=== PATIENT | female | born 1970 | race Hispanic/Latino ===

== ENCOUNTER 2017-08-27 20:22 | Emergency (ER) | payer MEDICAID, OTHER ==
[2017-08-27] MEDS ORDERED: ASPIRIN 325 MG TABLET ONE (20:26)
[2017-08-27 20:34] LABS: BASOPHILS % (AUTO) 1.3 % (0.0-5.0); EOSINOPHILS % (AUTO) 0.9 % (0.0-8.0); HEMATOCRIT 43.2 % (36-48); MEAN CORPUSCULAR HEMOGLOBIN 28.8 pg (27.0-33.0); MEAN CORPUSCULAR HGB CONC 34.1 g/dL (32.0-36.0); MEAN CORPUSCULAR VOLUME 84.4 fL (79-99); MONOCYTES % (AUTO) 6.4 % (3.0-13.0); NEUTROPHILS % (AUTO) 62.4 % (40.0-77.0); PLATELET COUNT (AUTO) 310 K/uL (130-400); RED BLOOD CELL COUNT(AUTO) 5.12 MIL/uL (4.00-5.50); WHITE BLOOD COUNT (AUTO) 12.9 K/uL (4.8-10.8)
[2017-08-27 20:48] LABS: CREATININE 0.8 mg/dL (0.5-1.5); INR 0.91 (0.85-1.15); PARTIAL THROMBOPLASTIN TIME 25.2 SEC (26.3-35.5); PROTHROMBIN TIME 9.6 SEC (9.6-11.6)
[2017-08-27] MEDS ORDERED: DIAZEPAM 5 MG TABLET ONE (20:48)
[2017-08-27 21:00] LABS: B-TYPE NATRIURETIC PEPTIDE < 5 pg/mL (0-100)
[2017-08-27 21:02] LABS: ALBUMIN 3.2 g/dL (3.5-5.0); BILIRUBIN,TOTAL 0.3 mg/dL (0.2-1.0); CREATINE KINASE MB 0.5 ng/mL (0.5-3.6); TOTAL PROTEIN, SERUM 6.3 g/dL (6.0-8.3)
== END 2017-08-27 21:44 | disposition home or self-care (01) ==
LOC: EDH 20:22
DX: F41.9 Anxiety disorder, unspecified (principal); E11.9 Type 2 diabetes mellitus without complications; E78.5 Hyperlipidemia, unspecified; I10 Essential (primary) hypertension
CPT/HCPCS: 36415; 71045; 80053; 82550; 82553; 83874; 83880; 84484; 85025; 85610; 85730; 93005; 94761

== ENCOUNTER 2018-05-18 20:05 | Observation (INO) | payer OTHER ==
[~2018-05-18] VITALS: Ht 162.6 cm; Wt 102.1 kg
[2018-05-18] MEDS ORDERED: ASPIRIN 325 MG TABLET ONE (20:24)
[2018-05-18 20:36] LABS: APPEARANCE,URINE Clear (CLEAR); BILIRUBIN,URINE Negative (NEGATIVE); COLOR,URINE Yellow (YELLOW); GLUCOSE, URINE (UA) Negative (NEGATIVE); KETONES,URINE Negative (NEGATIVE); LEUKOCYTE ESTERASE ,URINE Negative (NEGATIVE); NITRATE,URINE Negative (NEGATIVE); OCCULT BLOOD,URINE Negative (NEGATIVE); PROTEIN,URINE Negative (NEGATIVE)
[2018-05-18 20:44] LABS: AMPHET/METH SCREEN,URINE NEGATIVE (NEGATIVE); BARBITURATE SCREEN, URINE NEGATIVE (NEGATIVE); BENZODIAZEPINES SCREEN,URINE NEGATIVE (NEGATIVE); CANNABINOID SCREEN,URINE POSITIVE (NEGATIVE); COCAINE SCREEN,URINE NEGATIVE (NEGATIVE); OPIATE SCREEN,URINE NEGATIVE (NEGATIVE); PHENCYCLIDINE SCREEN,URINE NEGATIVE (NEGATIVE)
[2018-05-18 21:01] LABS: BASOPHILS % (AUTO) 1.1 % (0.0-5.0); EOSINOPHILS % (AUTO) 2.2 % (0.0-8.0); HEMATOCRIT 38.2 % (36-48); LYMPHOCYTES % (AUTO) 29.7 % (21.0-51.0); MEAN CORPUSCULAR HEMOGLOBIN 28.2 pg (27.0-33.0); MEAN CORPUSCULAR HGB CONC 33.6 g/dL (32.0-36.0); MEAN CORPUSCULAR VOLUME 83.9 fL (79-99); MONOCYTES % (AUTO) 9.6 % (3.0-13.0); NEUTROPHILS % (AUTO) 57.4 % (40.0-77.0); PLATELET COUNT (AUTO) 427 K/uL (130-400); RED BLOOD CELL COUNT(AUTO) 4.56 MIL/uL (4.00-5.50); RED CELL DISTRIBUTION WIDTH 13.4 % (11.0-15.5); WHITE BLOOD COUNT (AUTO) 9.3 K/uL (4.8-10.8)
[2018-05-18 21:08] LABS: CREATININE 0.8 mg/dL (0.5-1.5)
[2018-05-18 21:11] LABS: INR 0.95 (0.85-1.15); PARTIAL THROMBOPLASTIN TIME 27.3 SEC (26.3-35.5)
[2018-05-18 21:18] LABS: ALBUMIN 3.5 g/dL (3.5-5.0); BILIRUBIN,TOTAL 0.3 mg/dL (0.2-1.0); TOTAL PROTEIN, SERUM 7.1 g/dL (6.0-8.3)
[2018-05-18 21:39] LABS: B-TYPE NATRIURETIC PEPTIDE 9 pg/mL (0-100)
[2018-05-18] MEDS ORDERED: MORPHINE SULFATE 2 MG/ML 1ML SYG IV PRN (22:15)
[2018-05-18] MEDS ORDERED: ACETAMINOPHEN 325 MG TAB PO PRN (22:15)
[2018-05-18] MEDS ORDERED: ONDANSETRON HCL 4 MG/2 ML VIAL IV PRN (22:15)
[2018-05-19] VITALS (7 sets, daily range): BP systolic 106–146; BP diastolic 55–94
[2018-05-19] MEDS ORDERED: METF-446 PO (02:07)
[2018-05-19] MEDS ORDERED: AEC81 PO (02:07)
[2018-05-19] MEDS ORDERED: INSU3INS5 SQ ×2 (02:07)
[2018-05-19] MEDS ORDERED: LISI2.5T2 PO (02:07)
[2018-05-19] MEDS ORDERED: GABA-531 PO (02:07)
[2018-05-19 05:42] LABS: CREATINE KINASE, TOTAL 40 U/L (21-232); MYOGLOBIN 29 ng/mL (10-92); TROPONIN I < 0.04 ng/mL (0.00-0.06)
[2018-05-19] MEDS: INSULIN HUMULIN R 100 UNIT/ML 3ML SQ SCH ×4 (05:52→21:40)
[2018-05-19] MEDS: METOPROLOL TARTRATE 25 MG TAB PO SCH ×2 (08:26→21:39)
[2018-05-19] MEDS: ATORVASTATIN CALCIUM 20 MG TABLET PO SCH (08:26)
[2018-05-19] MEDS: PANTOPRAZOLE SODIUM 40 MG TABLET.DR PO SCH (08:26)
[2018-05-19] MEDS: ASPIRIN 325 MG TABLET PO SCH (08:26)
[2018-05-19] MEDS: LISINOPRIL 2.5 MG TABLET PO SCH (08:27)
[2018-05-19] MEDS: ENOXAPARIN SODIUM 40 MG/0.4 ML SYRINGE SQ SCH (08:27)
[2018-05-19 08:45] LABS: CREATINE KINASE, TOTAL 38 U/L (21-232); MYOGLOBIN 28 ng/mL (10-92); TROPONIN I < 0.04 ng/mL (0.00-0.06)
[2018-05-19 14:55] LABS: CREATINE KINASE, TOTAL 39 U/L (21-232); MYOGLOBIN 16 ng/mL (10-92); TROPONIN I < 0.04 ng/mL (0.00-0.06)
--- NOTE | 2018-05-19 16:14 | NUR ---
cm note met with patient and family. pt resides at home with 2 children, is independent and active at home. no dme. goes to [facility] familiar with dr isbell.. pt drives. dc plan is back to home at de. Addendum: 05/19/18 at 1616 by NOEMI BHARDWAJ CM Amended: Links added.
[2018-05-20 04:00] VITALS: BP 102/64
[2018-05-20 05:53] LABS: BASOPHILS % (AUTO) 1.3 % (0.0-5.0); EOSINOPHILS % (AUTO) 2.3 % (0.0-8.0); HEMATOCRIT 37.6 % (36-48); LYMPHOCYTES % (AUTO) 29.7 % (21.0-51.0); MEAN CORPUSCULAR HEMOGLOBIN 28.9 pg (27.0-33.0); MEAN CORPUSCULAR HGB CONC 34.2 g/dL (32.0-36.0); MEAN CORPUSCULAR VOLUME 84.3 fL (79-99); NEUTROPHILS % (AUTO) 57.7 % (40.0-77.0); PLATELET COUNT (AUTO) 386 K/uL (130-400); RED BLOOD CELL COUNT(AUTO) 4.46 MIL/uL (4.00-5.50); RED CELL DISTRIBUTION WIDTH 13.3 % (11.0-15.5); WHITE BLOOD COUNT (AUTO) 8.2 K/uL (4.8-10.8)
[2018-05-20] MEDS: INSULIN HUMULIN R 100 UNIT/ML 3ML SQ SCH ×3 (06:13→17:00)
[2018-05-20 06:15] LABS: ALBUMIN 3.1 g/dL (3.5-5.0); BILIRUBIN,TOTAL 0.4 mg/dL (0.2-1.0); CREATININE 0.8 mg/dL (0.5-1.5); POTASSIUM 4.3 mmol/L (3.5-5.1); TOTAL PROTEIN, SERUM 6.5 g/dL (6.0-8.3)
[2018-05-20 08:35] VITALS: BP 123/69
[2018-05-20] MEDS: METOPROLOL TARTRATE 25 MG TAB PO SCH (09:03)
[2018-05-20] MEDS: ENOXAPARIN SODIUM 40 MG/0.4 ML SYRINGE SQ SCH (09:05)
[2018-05-20] MEDS: LISINOPRIL 2.5 MG TABLET PO SCH (09:05)
[2018-05-20] MEDS: ATORVASTATIN CALCIUM 20 MG TABLET PO SCH (09:05)
[2018-05-20] MEDS: PANTOPRAZOLE SODIUM 40 MG TABLET.DR PO SCH (09:05)
[2018-05-20] MEDS: ASPIRIN 325 MG TABLET PO SCH (09:05)
[2018-05-20 11:57] VITALS: BP 131/76
--- NOTE | 2018-05-20 13:15 | NUR ---
MICHELET F/U WAITING ON 2 D ECHO WITH PROB DC HOME AFTER READ. Addendum: 05/20/18 at 1316 by MONSERRAT CONDON RN CM Amended: Links added.
[2018-05-20 16:20] VITALS: BP 175/78
--- NOTE | 2018-05-20 18:20 | NUR ---
Patient discharged in stable condition. 2 D echo WNL. Galileo Marcelo ALUMINUM [employer]ING[employer]FER notified of findings. Ok to discharge. Patient instructed to f/u with Dr. Castro in 1 week. Patient instructed to come back to ER if SOB, chest pain or changes in mental status. patient verbalized understanding. No new prescriptions given. IV removed from right hand. pt tolerated well.
== END 2018-05-20 18:45 | disposition home or self-care (01) ==
LOC: EDH 20:05 → INTOOBSV 22:06 → EDHIP 22:06 → 4CH 05-19 00:35
PROVIDERS: ADMIT Hospitalist; ATTEND Hospitalist
DX: R07.89 Other chest pain (principal); R06.02 Shortness of breath; E11.9 Type 2 diabetes mellitus without complications; E78.5 Hyperlipidemia, unspecified; I10 Essential (primary) hypertension; F12.90 Cannabis use, unspecified, uncomplicated
CPT/HCPCS: 36415 ×3; 71045; 80053 ×2; 80305; 81003; 81025; 82550 ×4; 82948 ×7; 83690; 83874 ×4; 83880; 84484 ×4; 84702; 85025 ×2; 85610; 85730; 93005; 93306; 96372 ×2; 96374; 96375; 99284; G0378 ×45; J1650 ×2; J1815 ×3; J2405

== ENCOUNTER 2018-05-30 20:33 | Emergency (ER) | payer OTHER ==
[~2018-05-30 20:33] MED LIST: AEC81 PO; GABA-531 PO; INSU3INS5 SQ; LISI2.5T2 PO; METF-446 PO
[2018-05-30 21:20] LABS: BASOPHILS % (AUTO) 1.2 % (0.0-5.0); EOSINOPHILS % (AUTO) 3.8 % (0.0-8.0); HEMATOCRIT 37.9 % (36-48); LYMPHOCYTES % (AUTO) 25.9 % (21.0-51.0); MEAN CORPUSCULAR HEMOGLOBIN 28.7 pg (27.0-33.0); MEAN CORPUSCULAR HGB CONC 34.3 g/dL (32.0-36.0); MEAN CORPUSCULAR VOLUME 83.8 fL (79-99); MONOCYTES % (AUTO) 9.9 % (3.0-13.0); NEUTROPHILS % (AUTO) 59.2 % (40.0-77.0); NUCLEATED RED BLOOD CELLS 0.1 % (0.0-0.19); PLATELET COUNT (AUTO) 342 K/uL (130-400); RED BLOOD CELL COUNT(AUTO) 4.52 MIL/uL (4.00-5.50); RED CELL DISTRIBUTION WIDTH 13.3 % (11.0-15.5); WHITE BLOOD COUNT (AUTO) 9.6 K/uL (4.8-10.8)
[2018-05-30 21:30] LABS: POTASSIUM 4.1 mmol/L (3.5-5.1)
[2018-05-30 21:33] LABS: INR 0.91 (0.85-1.15); PARTIAL THROMBOPLASTIN TIME 27.5 SEC (26.3-35.5); PROTHROMBIN TIME 9.6 SEC (9.6-11.6)
[2018-05-30 21:42] LABS: ALBUMIN 3.3 g/dL (3.5-5.0); BILIRUBIN,TOTAL 0.2 mg/dL (0.2-1.0); CREATININE 0.9 mg/dL (0.5-1.5); TOTAL PROTEIN, SERUM 7.1 g/dL (6.0-8.3)
[2018-05-30] MEDS ORDERED: ASPIRIN 325 MG TABLET ONE (22:01)
[2018-05-30] MEDS ORDERED: ONDANSETRON HCL 4 MG/2 ML VIAL ONE (22:01)
[2018-05-30] MEDS ORDERED: MORPHINE SULFATE 4 MG/1ML SYG ONE (22:01)
[2018-05-30] MEDS ORDERED: MEPERIDINE-PF 25 MG/ML SYG ONE (22:22)
[2018-05-31] MEDS ORDERED: KETOROLAC TROMETHAMINE 30MG/ML ONE (00:58)
== END 2018-05-31 01:31 | disposition home or self-care (01) ==
LOC: EDH 20:33
DX: R07.89 Other chest pain (principal); F41.9 Anxiety disorder, unspecified; I10 Essential (primary) hypertension; E78.5 Hyperlipidemia, unspecified; E11.9 Type 2 diabetes mellitus without complications; Z91.041 Radiographic dye allergy status; Z88.7 Allergy status to serum and vaccine
CPT/HCPCS: 36415; 71045; 80053; 82550; 84484; 85025; 85610; 85730; 93005; 96374; 99284; J1885; J2175; J2270; J2405

== ENCOUNTER 2018-08-19 05:36 | Day surgery (SDC) | payer OTHER ==
[2018-08-15 10:00] VITALS: BP 166/79
[2018-08-15 10:17] LABS: EOSINOPHILS % (AUTO) 1.8 % (0.0-8.0); HEMATOCRIT 37.5 % (36-48); MEAN CORPUSCULAR HEMOGLOBIN 28.4 pg (27.0-33.0); MEAN CORPUSCULAR HGB CONC 33.3 g/dL (32.0-36.0); MEAN CORPUSCULAR VOLUME 85.3 fL (79-99); MONOCYTES % (AUTO) 6.3 % (3.0-13.0); NEUTROPHILS % (AUTO) 66.9 % (40.0-77.0); PLATELET COUNT (AUTO) 377 K/uL (130-400); RED BLOOD CELL COUNT(AUTO) 4.39 MIL/uL (4.00-5.50); RED CELL DISTRIBUTION WIDTH 13.4 % (11.0-15.5); WHITE BLOOD COUNT (AUTO) 8.3 K/uL (4.8-10.8)
[2018-08-15 10:22] LABS: APPEARANCE,URINE Clear (CLEAR); BILIRUBIN,URINE Negative (NEGATIVE); COLOR,URINE Yellow (YELLOW); GLUCOSE, URINE (UA) Negative (NEGATIVE); KETONES,URINE Negative (NEGATIVE); LEUKOCYTE ESTERASE ,URINE Negative (NEGATIVE); NITRATE,URINE Negative (NEGATIVE); OCCULT BLOOD,URINE Negative (NEGATIVE); PROTEIN,URINE Negative (NEGATIVE)
[2018-08-15 10:26] LABS: CREATININE 0.8 mg/dL (0.5-1.5); POTASSIUM 4.3 mmol/L (3.5-5.1)
[2018-08-15 10:28] LABS: INR 0.94 (0.85-1.15); PARTIAL THROMBOPLASTIN TIME 28.2 SEC (26.3-35.5); PROTHROMBIN TIME 9.9 SEC (9.6-11.6)
[~2018-08-19] VITALS: Ht 163.8 cm; Wt 106.9 kg
[2018-08-19] VITALS (9 sets, daily range): BP systolic 131–170; BP diastolic 74–87
[~2018-08-19 05:36] MED LIST changes: -AEC81 PO; +ASPI-1026 PO; +ATOR10TA69 PO; +DIPH25CA7 PO; -GABA-531 PO; +ISOS30TA6 PO; +KETO.5OS OD; -LISI2.5T2 PO; -METF-446 PO; +METHYLPREDNISOLONE SOD SUCC 125MG/2ML VIAL IVP SCH; +METO-391 PO; +Nitroglycerin 0.4MG Sl Tab SL; +PRED20TA3 PO; +SITA1TAB6 PO; +SODIUM CHLORIDE 0.9% 500ML 500 ML IV SCH
[2018-08-19] MEDS ORDERED: SODIUM CHLORIDE 0.9% 1000ML 1,000 ML IV ONE (08:48)
[2018-08-19] MEDS ORDERED: IOHEXOL 350 MG/ML 100ML INFUS..BTL IV ONE (09:09)
[2018-08-19] MEDS ORDERED: LIDOCAINE HCL 2% 20ML ONE (09:09)
[2018-08-19] MEDS ORDERED: NITROGLYCERIN 5 MG/ML 10 ML VIAL IV ONE (09:09)
[2018-08-19] MEDS ORDERED: IOHEXOL-350 50ML VIAL IV ONE (09:09)
[2018-08-19] MEDS ORDERED: GLUCAGON 1MG KIT 1 MG ML IM PRN (10:15)
[2018-08-19] MEDS ORDERED: DEXTROSE 50%-WATER 50 ML DISP.SYRIN IV PRN (10:15)
== END 2018-08-19 13:15 | disposition home or self-care (01) ==
LOC: DAH 05:36
PROVIDERS: ATTEND Internal Medicine Cardiovascular Disease
DX: I25.118 Atherosclerotic heart disease of native coronary artery with other forms of angina pectoris (principal); R07.9 Chest pain, unspecified; E11.9 Type 2 diabetes mellitus without complications; I10 Essential (primary) hypertension; E78.5 Hyperlipidemia, unspecified; Z79.82 Long term (current) use of aspirin; Z79.01 Long term (current) use of anticoagulants; Z98.890 Other specified postprocedural states; Z68.39 Body mass index [BMI] 39.0-39.9, adult; Z88.8 Allergy status to other drugs, medicaments and biological substances
CPT/HCPCS: 36415; 71045; 80048; 81003; 82948; 85025; 85610; 85730; 93005; 93458; A4606; C1760; C1894; J1644; J3490; J7030; Q9967

== ENCOUNTER 2018-08-26 07:41 | Emergency (ER) | payer OTHER ==
[~2018-08-26 07:41] MED LIST changes: -ASPI-1026 PO; -DIPH25CA7 PO; -ISOS30TA6 PO; -METHYLPREDNISOLONE SOD SUCC 125MG/2ML VIAL IVP SCH; -Nitroglycerin 0.4MG Sl Tab SL; -PRED20TA3 PO; -SODIUM CHLORIDE 0.9% 500ML 500 ML IV SCH
[2018-08-26] MEDS ORDERED: ASPIRIN 325 MG TABLET ONE (07:55)
[2018-08-26 08:15] LABS: BASOPHILS % (AUTO) 2.8 % (0.0-5.0); EOSINOPHILS % (AUTO) 1.7 % (0.0-8.0); HEMATOCRIT 40.6 % (36-48); LYMPHOCYTES % (AUTO) 20.8 % (21.0-51.0); MEAN CORPUSCULAR HEMOGLOBIN 28.5 pg (27.0-33.0); MEAN CORPUSCULAR HGB CONC 33.4 g/dL (32.0-36.0); MEAN CORPUSCULAR VOLUME 85.3 fL (79-99); MONOCYTES % (AUTO) 6.4 % (3.0-13.0); NEUTROPHILS % (AUTO) 68.3 % (40.0-77.0); PLATELET COUNT (AUTO) 337 K/uL (130-400); RED BLOOD CELL COUNT(AUTO) 4.76 MIL/uL (4.00-5.50); RED CELL DISTRIBUTION WIDTH 13.3 % (11.0-15.5); WHITE BLOOD COUNT (AUTO) 11.9 K/uL (4.8-10.8)
[2018-08-26 08:21] LABS: CREATININE 0.8 mg/dL (0.5-1.5); POTASSIUM 4.1 mmol/L (3.5-5.1)
[2018-08-26 08:31] LABS: INR 0.89 (0.85-1.15); PARTIAL THROMBOPLASTIN TIME 27.5 SEC (26.3-35.5); PROTHROMBIN TIME 9.4 SEC (9.6-11.6)
[2018-08-26 08:33] LABS: ALBUMIN 3.4 g/dL (3.5-5.0); BILIRUBIN,TOTAL 0.2 mg/dL (0.2-1.0)
== END 2018-08-26 12:40 | disposition home or self-care (01) ==
LOC: EDH 07:41
DX: R07.89 Other chest pain (principal); E11.9 Type 2 diabetes mellitus without complications; I10 Essential (primary) hypertension; E78.5 Hyperlipidemia, unspecified; Z91.041 Radiographic dye allergy status; Z88.7 Allergy status to serum and vaccine; Z87.891 Personal history of nicotine dependence
CPT/HCPCS: 36415; 71045; 80053; 82550; 83874; 84484; 85025; 85610; 85730; 93005

== ENCOUNTER 2019-03-29 11:56 | Observation (INO) | payer OTHER ==
[~2019-03-29] VITALS: Ht 165.1 cm; Wt 107.0 kg
[2019-03-29 12:31] LABS: BASOPHILS % (AUTO) 0.6 % (0.0-5.0); EOSINOPHILS % (AUTO) 0.7 % (0.0-8.0); HEMATOCRIT 41.8 % (36-48); LYMPHOCYTES % (AUTO) 25.4 % (21.0-51.0); MEAN CORPUSCULAR HEMOGLOBIN 27.8 pg (27.0-33.0); MEAN CORPUSCULAR VOLUME 84.3 fL (79-99); MONOCYTES % (AUTO) 6.6 % (3.0-13.0); NEUTROPHILS % (AUTO) 66.3 % (40.0-77.0); PLATELET COUNT (AUTO) 398 K/uL (130-400); RED BLOOD CELL COUNT(AUTO) 4.96 MIL/uL (4.00-5.50); RED CELL DISTRIBUTION WIDTH 12.2 % (11.0-15.5); WHITE BLOOD COUNT (AUTO) 9.7 K/uL (4.8-10.8)
[2019-03-29 12:40] LABS: CREATININE 0.9 mg/dL (0.5-1.5); POTASSIUM 3.6 mmol/L (3.5-5.1)
[2019-03-29] MEDS ORDERED: ASPIRIN 325 MG TABLET ONE (12:41)
[2019-03-29 12:43] LABS: PARTIAL THROMBOPLASTIN TIME 28.4 SEC (26.3-35.5); PROTHROMBIN TIME 10.5 SEC (9.6-11.6)
[2019-03-29 12:45] LABS: ALBUMIN 3.5 g/dL (3.5-5.0); BILIRUBIN,TOTAL 0.4 mg/dL (0.2-1.0); TOTAL PROTEIN, SERUM 7.4 g/dL (6.0-8.3)
[2019-03-29] MEDS ORDERED: ONDANSETRON HCL 4 MG/2 ML VIAL ONE (12:53)
[2019-03-29] MEDS ORDERED: MORPHINE SULFATE 4 MG/1ML SYG ONE (12:53)
[2019-03-29] MEDS ORDERED: NITROGLYCERIN 0.4 MG SL TAB SL PRN (15:45)
[2019-03-29] MEDS ORDERED: ACETAMINOPHEN 325 MG TAB PO PRN (15:45)
[2019-03-29] MEDS ORDERED: MORPHINE SULFATE 2 MG/ML 1ML SYG IV PRN (15:45)
[2019-03-29] MEDS ORDERED: HYDRALAZINE HCL 20 MG/ML VIAL IV PRN (15:45)
[2019-03-29] MEDS ORDERED: GLUCAGON 1MG KIT 1 MG ML IM PRN (16:30)
[2019-03-29] MEDS ORDERED: INSULIN HUMULIN 70/30 100 UNIT/ML 3ML SQ SCH (16:30)
[2019-03-29] MEDS: INSULIN HUMULIN R 100 UNIT/ML 3ML SQ SCH ×2 (16:30→21:27)
[2019-03-29] MEDS ORDERED: DEXTROSE 50%-WATER 50 ML DISP.SYRIN IV PRN (16:30)
[2019-03-29 17:17] LABS: CREATINE KINASE, TOTAL 52 U/L (21-232); MYOGLOBIN 27 ng/mL (10-92); TROPONIN I < 0.04 ng/mL (0.00-0.06)
[2019-03-29 17:23] LABS: HEMOGLOBIN A1C 9.1 % (4.0-6.0)
--- NOTE | 2019-03-29 17:35 | NUR ---
BLIND IN RIGHT EYE Addendum: 03/29/19 at 1826 by SANTOS CASEY RN RN Amended: Links added.
--- NOTE | 2019-03-29 18:00 | NUR ---
PATIENT STATES BLIND IN RIGHT EYE Addendum: 03/29/19 at 1849 by SANTOS CASEY RN RN Amended: Links added.
[2019-03-29 18:16] VITALS: BP 136/76
[2019-03-29] MEDS ORDERED: ASPI81TA40 PO (18:35)
[2019-03-29] MEDS ORDERED: SITA1TAB6 PO (18:35)
[2019-03-29 18:50] LABS: CHOLESTEROL 104 mg/dL (<200); HDL CHOLESTEROL 27 mg/dL (35-85); LDL DIRECT 64 mg/dL (0-99); TRIGLYCERIDES 111 mg/dL (30-200)
[2019-03-29] MEDS: SODIUM CHLORIDE 0.9% 1000ML 1,000 ML IV SCH (19:03)
[2019-03-29 20:10] VITALS: BP 139/76
[2019-03-29] MEDS ORDERED: FAMOTIDINE 20MG TAB 20 MG TAB PO SCH (21:00)
[2019-03-29] MEDS ORDERED: ATORVASTATIN CALCIUM 10 MG TABLET PO SCH (21:00)
[2019-03-29] MEDS: KETOROLAC TROMETHAMINE OPTH 0.5% 5ML DROPS OD SCH (21:17)
[2019-03-30] VITALS: BP 117/76
[2019-03-30 01:41] LABS: CREATINE KINASE, TOTAL 47 U/L (21-232); MYOGLOBIN 27 ng/mL (10-92); TROPONIN I < 0.04 ng/mL (0.00-0.06)
[2019-03-30 04:00] VITALS: BP 115/64
[2019-03-30] MEDS: SODIUM CHLORIDE 0.9% 1000ML 1,000 ML IV SCH ×2 (05:04→08:34)
[2019-03-30] MEDS: INSULIN HUMULIN R 100 UNIT/ML 3ML SQ SCH ×3 (06:15→16:30)
[2019-03-30] MEDS ORDERED: INSULIN HUMULIN 70/30 100 UNIT/ML 3ML SQ SCH (07:30)
[2019-03-30 08:00] VITALS: BP 137/78
[2019-03-30] MEDS ORDERED: LINAGLIPTIN 5 MG TABLET PO SCH (08:00)
[2019-03-30] MEDS ORDERED: METFORMIN HCL 500 MG TABLET PO SCH (08:00)
[2019-03-30] MEDS: KETOROLAC TROMETHAMINE OPTH 0.5% 5ML DROPS OD SCH (09:00)
[2019-03-30] MEDS ORDERED: METOPROLOL SUCCINATE 50 MG TAB.SR.24H PO SCH (09:00)
[2019-03-30] MEDS ORDERED: ENOXAPARIN SODIUM 40 MG/0.4 ML SYRINGE SQ SCH (09:00)
[2019-03-30] MEDS ORDERED: PANTOPRAZOLE SODIUM 40 MG TABLET.DR PO SCH (09:00)
[2019-03-30] MEDS ORDERED: ASPIRIN 81 MG EC TAB PO SCH (09:00)
[2019-03-30 09:22] LABS: CREATINE KINASE, TOTAL 43 U/L (21-232); MYOGLOBIN 29 ng/mL (10-92); TROPONIN I < 0.04 ng/mL (0.00-0.06)
[2019-03-30 11:00] VITALS: BP 144/85
[2019-03-30 16:00] VITALS: BP 146/57
--- NOTE | 2019-03-30 18:38 | NUR ---
pt stated understanding of all discharge instructions for after care for chest pain, no new scripts, f/u w/ pcp and dr redmond; iv access and tele box had already been removed earlier.
== END 2019-03-30 18:41 | disposition home or self-care (01) ==
LOC: EDH 11:56 → EDHIP 15:40 → 4BH 17:28
PROVIDERS: ADMIT Internal Medicine; ATTEND Internal Medicine
DX: R07.89 Other chest pain (principal); I10 Essential (primary) hypertension; R06.02 Shortness of breath; E78.00 Pure hypercholesterolemia, unspecified; E11.9 Type 2 diabetes mellitus without complications; R19.7 Diarrhea, unspecified; E78.5 Hyperlipidemia, unspecified; Z90.710 Acquired absence of both cervix and uterus; Z95.818 Presence of other cardiac implants and grafts; Z79.899 Other long term (current) drug therapy; Z79.4 Long term (current) use of insulin; Z88.7 Allergy status to serum and vaccine; Z91.048 Other nonmedicinal substance allergy status
CPT/HCPCS: 36415 ×2; 71045; 80053; 80061; 82550 ×4; 82948 ×4; 83036; 83874 ×3; 84484 ×4; 85025; 85610; 85730; 93005 ×4; 93306; 96360; 96361 ×2; 96372 ×2; 99284; G0378 ×10; J1650; J1815 ×2; J2270; J2405

== ENCOUNTER 2022-06-06 08:28 | Observation (INO) | payer BC ==
[~2022-06-06] VITALS: Ht 165.1 cm; Wt 79.6 kg
[~2022-06-06 08:28] MED LIST changes: +ASPI81TA40 PO; -ATOR10TA69 PO; +ATOR20TA65 PO; +GLIM4TAB36 PO; +INSLAN SQ; -INSU3INS5 SQ; -KETO.5OS OD; +LISI1TAB53 PO; -METO-391 PO
[2022-06-06 08:56] LABS: BASOPHILS % (AUTO) 0.4 % (0.0-5.0); EOSINOPHILS % (AUTO) 0.1 % (0.0-8.0); HEMATOCRIT 42.4 % (36-48); LYMPHOCYTES % (AUTO) 14.5 % (21.0-51.0); MEAN CORPUSCULAR HEMOGLOBIN 28.9 pg (27.0-33.0); MONOCYTES % (AUTO) 2.1 % (3.0-13.0); NEUTROPHILS % (AUTO) 82.5 % (40.0-77.0); PLATELET COUNT (AUTO) 380 K/uL (130-400); RED BLOOD CELL COUNT(AUTO) 4.99 MIL/uL (4.00-5.50); RED CELL DISTRIBUTION WIDTH 12.8 % (11.0-15.5); WHITE BLOOD COUNT (AUTO) 10.5 K/uL (4.8-10.8)
[2022-06-06] MEDS ORDERED: ONDANSETRON 4MG INJ IVP ONE (09:00)
[2022-06-06] MEDS ORDERED: FAMOTIDINE 20MG TAB PO ONE (09:00)
[2022-06-06] MEDS ORDERED: 0.9%NACL 1000ML 1,000 ML IV ONE (09:00)
[2022-06-06] MEDS ORDERED: KETOROLAC 15MG/ML VIAL (15MG/ML) IV ONE (09:00)
[2022-06-06 09:03] LABS: CREATININE 0.7 mg/dL (0.5-1.5); POTASSIUM 3.2 mmol/L (3.5-5.1)
[2022-06-06 09:10] LABS: TOTAL PROTEIN, SERUM 7.7 g/dL (6.0-8.3)
[2022-06-06] MEDS ORDERED: MAG/ALUM/SIMETH 30 ML UDCUP PO PRN (10:30)
[2022-06-06] MEDS ORDERED: POTASSIUM BICARB/CIT AC 25 MEQ TABLET.EFF PO ONE (10:30)
[2022-06-06] MEDS ORDERED: ACETAMINOPHEN 325 MG TAB PO PRN ×2 (10:30)
[2022-06-06] MEDS ORDERED: ONDANSETRON 4MG INJ IV PRN (10:30)
[2022-06-06] MEDS ORDERED: GLUCAGON 1MG KIT 1 MG ML IM PRN (11:00)
[2022-06-06] MEDS ORDERED: LIDOCAINE HCL-MPF 1% 2ML VIAL IV PRN ×2 (11:00)
[2022-06-06] MEDS ORDERED: POTASSIUM CHLORIDE 10% ELIXIR 20 MEQ/15 ML UDCUP PO PRN ×2 (11:00)
[2022-06-06] MEDS ORDERED: KCL 20 MEQ ERTAB PO PRN (11:00)
[2022-06-06] MEDS ORDERED: POTASSIUM CHLORIDE 20MEQ/100ML 100 ML IV PRN ×2 (11:00)
[2022-06-06] MEDS ORDERED: DEXTROSE 50%-WATER 50 ML DISP.SYRIN IV PRN (11:00)
[2022-06-06 11:05] LABS: HEMOGLOBIN A1C 5.5 % (4.0-6.0)
[2022-06-06] MEDS: INSULIN HUMULIN R 100 UNIT/ML 3ML SQ SCH ×3 (11:30→21:00)
[2022-06-06] MEDS: 0.9%NACL 1000ML 1,000 ML IV SCH ×2 (12:04→21:45)
[2022-06-06] MEDS: ZOSYN 3.375GM+NS 50ML 50 ML IVPB SCH ×3 (12:04→21:27)
[2022-06-06 16:00] VITALS: BP 130/70
[2022-06-06] MEDS ORDERED: SEMA1PEN3 SQ (16:08)
[2022-06-06 20:31] VITALS: BP 118/66
[2022-06-06 20:51] LABS: APPEARANCE,URINE CLOUDY (CLEAR); BILIRUBIN,URINE 0.5 mg/dL (NEGATIVE); COLOR,URINE YELLOW (YELLOW); GLUCOSE, URINE (UA) 30 mg/dL (NEGATIVE); KETONES,URINE 150 mg/dL (NEGATIVE); LEUKOCYTE ESTERASE ,URINE 25 Leu/uL (NEGATIVE); NITRATE,URINE NEGATIVE (NEGATIVE); OCCULT BLOOD,URINE NEGATIVE (NEGATIVE); PROTEIN,URINE 70 mg/dL (NEGATIVE)
[2022-06-06 20:59] LABS: BACTERIA,URINE RARE /HPF (None Seen); MUCUS,URINE FEW LPF (None Seen); OTHER CASTS, URINE 1 /LPF (None Seen); SQUAMOUS EPITHELIAL CELL,UR MANY /HPF (0-2)
[2022-06-06] MEDS: FAMOTIDINE 20MG VIAL IV SCH (21:28)
[2022-06-06] MEDS: KCL 20 MEQ ERTAB PO PRN (21:28)
[2022-06-06 23:24] VITALS: BP 125/71
[2022-06-07 03:28] VITALS: BP 121/65
[2022-06-07] MEDS: ZOSYN 3.375GM+NS 50ML 50 ML IVPB SCH ×2 (04:14→15:36)
[2022-06-07] MEDS: INSULIN HUMULIN R 100 UNIT/ML 3ML SQ SCH ×2 (05:18→11:30)
[2022-06-07 06:14] LABS: BASOPHILS % (AUTO) 0.4 % (0.0-5.0); EOSINOPHILS % (AUTO) 0.4 % (0.0-8.0); HEMATOCRIT 34.6 % (36-48); LYMPHOCYTES % (AUTO) 27.7 % (21.0-51.0); MEAN CORPUSCULAR HEMOGLOBIN 28.8 pg (27.0-33.0); MEAN CORPUSCULAR HGB CONC 32.7 g/dL (32.0-36.0); MONOCYTES % (AUTO) 8.3 % (3.0-13.0); NEUTROPHILS % (AUTO) 62.8 % (40.0-77.0); PLATELET COUNT (AUTO) 305 K/uL (130-400); RED BLOOD CELL COUNT(AUTO) 3.93 MIL/uL (4.00-5.50); RED CELL DISTRIBUTION WIDTH 12.9 % (11.0-15.5); WHITE BLOOD COUNT (AUTO) 10.5 K/uL (4.8-10.8)
[2022-06-07 06:25] LABS: ALBUMIN 3.2 g/dL (3.5-5.0); CREATININE 0.7 mg/dL (0.5-1.5); POTASSIUM 3.6 mmol/L (3.5-5.1); TOTAL PROTEIN, SERUM 5.9 g/dL (6.0-8.3)
[2022-06-07] MEDS: 0.9%NACL 1000ML 1,000 ML IV SCH (06:38)
[2022-06-07 08:00] VITALS: BP 130/65
[2022-06-07] MEDS ORDERED: ENOXAPARIN SODIUM 30 MG/0.3 ML SQ SCH (09:00)
[2022-06-07] MEDS ORDERED: LACTOBACILLUS RHAMNOSUS GG 1 EACH CAP.SPRINK PO SCH (10:30)
[2022-06-07] MEDS: FAMOTIDINE 20MG VIAL IV SCH (10:49)
[2022-06-07 12:00] VITALS: BP 127/76
[2022-06-07 16:00] VITALS: BP 136/77
[2022-06-07] MEDS: KCL 20 MEQ ERTAB PO PRN (16:56)
== END 2022-06-07 17:50 | disposition home or self-care (01) ==
LOC: EDH 08:28 → INTOOBSV 10:29 → EDHIP 10:29 → 3BH 14:58
PROVIDERS: ADMIT Internal Medicine; ATTEND Internal Medicine
DX: K52.9 Noninfective gastroenteritis and colitis, unspecified (principal); E87.6 Hypokalemia; E87.20 Acidosis, unspecified; E11.9 Type 2 diabetes mellitus without complications; I10 Essential (primary) hypertension; I25.10 Atherosclerotic heart disease of native coronary artery without angina pectoris; E78.00 Pure hypercholesterolemia, unspecified; I48.91 Unspecified atrial fibrillation; H54.61 Unqualified visual loss, right eye, normal vision left eye; Z90.710 Acquired absence of both cervix and uterus; Z79.899 Other long term (current) drug therapy
CPT/HCPCS: 96376 ×2; 96365; 96366 ×2; 96375; 99285; 83036; 82150; 84484; 80053 ×2; 83880; 83690; 85025 ×2; 87040 ×2; 87088; 82948 ×6; 83605 ×3; 81001; 81025; 36415 ×2; 71045; 74176; 93005; 96372; 96361; J3490 ×2; J7030 ×2; J2405 ×2; J2543 ×4; J1885; J1815; G0378 ×3; J1650

== ENCOUNTER 2022-11-04 09:09 | Emergency (ER) | payer BC ==
[~2022-11-04] VITALS: Ht 165.1 cm; Wt 69.9 kg
[~2022-11-04 09:09] MED LIST changes: -INSLAN SQ; +SEMA1PEN3 SQ
[2022-11-04 10:02] LABS: BASOPHILS # (AUTO) 0.06 K/uL (0.00-0.20); BASOPHILS % (AUTO) 0.6 % (0.0-5.0); EOSINOPHILS # (AUTO) 0.01 K/uL (0.00-0.70); EOSINOPHILS % (AUTO) 0.1 % (0.0-8.0); HEMATOCRIT 41.3 % (36-48); IMMATURE GRANULOCYTE ABSOLUTE 0.03 K/uL (0-1); LYMPHOCYTES # (AUTO) 1.6 K/uL (1.0-4.8); LYMPHOCYTES % (AUTO) 15.9 % (21.0-51.0); MEAN CORPUSCULAR HEMOGLOBIN 29.6 pg (27.0-33.0); MEAN CORPUSCULAR HGB CONC 33.9 g/dL (32.0-36.0); MEAN CORPUSCULAR VOLUME 87.3 fL (79-99); MONOCYTES # (AUTO) 0.2 K/uL (0.1-1.0); NEUTROPHILS # (AUTO) 8.1 K/uL (1.8-7.7); NEUTROPHILS % (AUTO) 81.1 % (40.0-77.0); PLATELET COUNT (AUTO) 308 K/uL (130-400); RED BLOOD CELL COUNT(AUTO) 4.73 MIL/uL (4.00-5.50); RED CELL DISTRIBUTION WIDTH 12.3 % (11.0-15.5)
[2022-11-04 10:39] LABS: CREATININE 0.8 mg/dL (0.5-1.5); POTASSIUM 3.3 mmol/L (3.5-5.1)
[2022-11-04 10:46] LABS: ALBUMIN 4.1 g/dL (3.5-5.0); BILIRUBIN,TOTAL 0.6 mg/dL (0.2-1.0); MAGNESIUM 1.5 mg/dL (1.80-2.40); TOTAL PROTEIN, SERUM 7.4 g/dL (6.0-8.3)
[2022-11-04] MEDS ORDERED: 0.9%NACL 1000ML 1,000 ML IV ONE (12:00)
[2022-11-04] MEDS ORDERED: ONDANSETRON 4MG INJ IVP ONE (12:00)
[2022-11-04 12:29] LABS: SARS-CoV-2, RNA, NAAT NEGATIVE SARS CoV-2 (NEGATIVE)
[2022-11-04 12:37] LABS: INFLUENZA TYPE A Negative For Type A (NEGATIVE); INFLUENZA TYPE B Negative For Type B (NEGATIVE)
[2022-11-04] MEDS ORDERED: POTASSIUM BICARB/CIT AC 25 MEQ TABLET.EFF PO ONE (13:30)
[2022-11-04] MEDS ORDERED: METOCLOPRAMIDE 10 MG/2 ML VIAL IM ONE (13:30)
[2022-11-04] MEDS ORDERED: ONDA4TAB10 PO ×2 (14:44→16:33)
[2022-11-04 16:50] VITALS: BP 126/72; PULSE 74; RESP 18; O2SAT 98
== END 2022-11-04 16:40 | disposition home or self-care (01) ==
LOC: EDH 09:09
DX: K52.9 Noninfective gastroenteritis and colitis, unspecified (principal); E87.6 Hypokalemia; E11.9 Type 2 diabetes mellitus without complications; E78.00 Pure hypercholesterolemia, unspecified; I10 Essential (primary) hypertension; Z20.822 Contact with and (suspected) exposure to COVID-19
CPT/HCPCS: 99284; 96374; 71045; 87635; 96361; 83735; 84484 ×2; 80053; 83880; 83690 ×2; 85025; 87804 ×2; 36415; 96372; 93005; C9803; J7030; J2405; J2765

== ENCOUNTER 2023-03-18 18:01 | Emergency (ER) | payer BC ==
[~2023-03-18] VITALS: Ht 165.1 cm; Wt 64.9 kg
[~2023-03-18 18:01] MED LIST changes: +ONDA4TAB10 PO
[2023-03-18 18:35] LABS: APPEARANCE,URINE CLEAR (CLEAR); BILIRUBIN,URINE NEGATIVE (NEGATIVE); GLUCOSE, URINE (UA) NEGATIVE (NEGATIVE); KETONES,URINE 5 mg/dL (NEGATIVE); LEUKOCYTE ESTERASE ,URINE NEGATIVE Leu/uL (NEGATIVE); NITRATE,URINE NEGATIVE (NEGATIVE); OCCULT BLOOD,URINE NEGATIVE (NEGATIVE); PROTEIN,URINE NEGATIVE (NEGATIVE); UROBILINOGEN,URINE 0.2 mg/dL (0.2-1.0)
[2023-03-18 18:36] LABS: ADD UA MICROSCOPIC YES; COLOR,URINE STRAW (YELLOW)
[2023-03-18 18:37] LABS: RBC,URINE 0-1 /HPF (0-1)
[2023-03-18 19:14] LABS: ALBUMIN 3.9 g/dL (3.5-5.0); BILIRUBIN,TOTAL 0.6 mg/dL (0.2-1.0); CREATININE 0.9 mg/dL (0.5-1.5); POTASSIUM 3.3 mmol/L (3.5-5.1); TOTAL PROTEIN, SERUM 7.5 g/dL (6.0-8.3)
[2023-03-18 19:15] LABS: BASOPHILS # (AUTO) 0.04 K/uL (0.00-0.20); BASOPHILS % (AUTO) 0.3 % (0.0-5.0); EOSINOPHILS # (AUTO) 0.01 K/uL (0.00-0.70); EOSINOPHILS % (AUTO) 0.1 % (0.0-8.0); HEMATOCRIT 40.6 % (36-48); IMMATURE GRANULOCYTE ABSOLUTE 0.07 K/uL (0-1); LYMPHOCYTES # (AUTO) 1.6 K/uL (1.0-4.8); LYMPHOCYTES % (AUTO) 12.7 % (21.0-51.0); MEAN CORPUSCULAR HEMOGLOBIN 29.8 pg (27.0-33.0); MEAN CORPUSCULAR HGB CONC 34.2 g/dL (32.0-36.0); MEAN CORPUSCULAR VOLUME 87.1 fL (79-99); MONOCYTES # (AUTO) 0.9 K/uL (0.1-1.0); MONOCYTES % (AUTO) 7.3 % (3.0-13.0); NEUTROPHILS # (AUTO) 9.7 K/uL (1.8-7.7); PLATELET COUNT (AUTO) 306 K/uL (130-400); RED BLOOD CELL COUNT(AUTO) 4.66 MIL/uL (4.00-5.50); RED CELL DISTRIBUTION WIDTH 12.7 % (11.0-15.5); WHITE BLOOD COUNT (AUTO) 12.3 K/uL (4.8-10.8)
[2023-03-18] MEDS ORDERED: GING250C PO (21:59)
[2023-03-18] MEDS ORDERED: METOCLOPRAMIDE 10 MG TABLET PO ONE (22:00)
[2023-03-18] MEDS ORDERED: POTASSIUM BICARB/CIT AC 25 MEQ TABLET.EFF PO ONE (22:00)
[2023-03-18] MEDS ORDERED: PANTOPRAZOLE 40 MG TAB DR PO ONE (22:00)
[2023-03-18 22:12] VITALS: BP 102/48; PULSE 75; RESP 16; O2SAT 100
== END 2023-03-18 22:13 | disposition home or self-care (01) ==
LOC: EDH 18:01
DX: R11.2 Nausea with vomiting, unspecified (principal); E11.9 Type 2 diabetes mellitus without complications; E87.6 Hypokalemia; R19.7 Diarrhea, unspecified; I10 Essential (primary) hypertension; Z79.82 Long term (current) use of aspirin; Z79.899 Other long term (current) drug therapy; Z98.890 Other specified postprocedural states; Z90.710 Acquired absence of both cervix and uterus; Z90.49 Acquired absence of other specified parts of digestive tract; Z88.8 Allergy status to other drugs, medicaments and biological substances
CPT/HCPCS: 36415; 80053; 81001; 83690; 84484; 85025; 93005